=== PATIENT | male | born 1995 | race Two or more races ===

== ENCOUNTER 2022-06-14 20:50 | Outpatient (CLI) | payer BC, SELFPAY | END 2022-06-14 20:51 | disposition home or self-care (01) | LOC: SLEEP 20:56 | PROVIDERS: Visit Provider Internal Medicine | DX: G47.33 Obstructive sleep apnea (adult) (pediatric) (principal) | CPT/HCPCS: 95811 ==

== ENCOUNTER 2022-09-24 10:00 | Day surgery (SDC) | payer BC, SELFPAY ==
[2022-09-24] VITALS (19 sets, daily range): BP systolic 124–147; BP diastolic 71–95; PULSE 92–107; RESP 14–29; TEMP 35.9–36.8; O2SAT 93–100; BMI 49.5
[2022-09-24] MEDS: LACTATED RINGERS 1000 ML 1,000 ML 100 ML IV (10:10)
--- NOTE | 2022-09-24 10:47 | W.ANESCHARGE ---
Anesthesia Charges Start Date/Time Anesthesia Start Date: 09/24/22 Anesthesia Start Time: 12:02 Stop Date/Time Anesthesia Stop Date: 09/24/22 Anesthesia Stop Time: 12:52
--- NOTE | 2022-09-24 12:27 | W.ANESCHARGE ---
Anesthesia Charges Start Date/Time Anesthesia Start Date: 09/24/22 Anesthesia Start Time: 12:02 Stop Date/Time Anesthesia Stop Date: 09/24/22 Anesthesia Stop Time: 12:52
--- NOTE | 2022-09-24 12:43 | W.PM.ENTPROC ---
Procedure Note Date of procedure: 09/24/22 Procedure: Preoperative diagnosis tonsillar hypertrophy, obstructive sleep apnea Postoperative diagnosis same Procedure tonsillectomy Under general endotracheal anesthesia the patient was prepped and draped in usual fashion. The McIvor mouth gag was inserted the tongue retracted forward. No submucous cleft was noted on inspection or palpation. The right and left tonsils were removed with a combination of needlepoint cautery, bipolar cautery and suction cautery. Meticulous hemostasis was achieved. TThe patient was extubated in the operating room taken recovery in satisfactory condition. Blood loss was less than 50mL. Surgeon: Robert Manning MD
[2022-09-24] MEDS: OXYCODONE 1 MG/ML ORAL SOLN 5 MG PO ×3 (14:17→22:35)
[2022-09-24] MEDS: ACETAMINOPHEN 160 MG/5 ML CUP 320 MG PO (14:18)
[2022-09-24] MEDS: IBUPROFEN 100 MG/5 ML SUSP 200 MG PO (16:58)
[2022-09-24] MEDS: ACETAMINOPHEN 500 MG TABLET PO ×2 (18:46→22:35)
--- NOTE | 2022-09-24 19:11 | PC.NURSE ---
Nursing Care Hours: [id number] Pt this shift calm and cooperative, alert and oriented. Tachypnea and tachycardic. Denies SOB and chest pain, LS clear. c/o throat pain 4-5/10 and 8/10 at end of shift. Treated per eMAR. Independent in room. Up to void x2. Attempt to advance diet, tried past and chicken. C/o tenderness and ate very little. Tolerating soft foods like yogurt and pudding. Ice to throat intermittently. HOB elevated high fowlers, O2 at 94% RA.
[2022-09-25] MEDS: OXYCODONE 1 MG/ML ORAL SOLN 5 MG PO ×2 (02:55→07:32)
[2022-09-25] MEDS: ACETAMINOPHEN 500 MG TABLET PO ×2 (02:55→07:33)
[2022-09-25 03:00] VITALS: BP 133/77; PULSE 97; RESP 20; TEMP 36.6; O2SAT 95
--- NOTE | 2022-09-25 05:05 | PC.NURSE ---
[id number] Pt rating pain 6-7/ entire shift, PRN pain medication administered with some relief, ice applied to neck and encouraged pt to intake ice chips/sips. Pt denies sob or difficulty breathing, slept high fowlers with pt own cpap. independent in room. somewhat tolerating intake, increased pain with swallowing.
[2022-09-25 07:32] VITALS: BP 150/98; PULSE 94; RESP 18; TEMP 36.4; O2SAT 97
== END 2022-09-25 08:51 | disposition home or self-care (01) ==
LOC: OR 10:01 → MEDSURG 10:05
PROVIDERS: PCP Family Medicine; Visit Provider Otolaryngology
PROC: (CPT 42826; principal; 2022-09-24 11:15)
DX: J35.1 Hypertrophy of tonsils (principal); G47.33 Obstructive sleep apnea (adult) (pediatric)
CPT/HCPCS: 42826; 00170; 88304; A9270; J0330; J1100; J1170; J2405; J2704; J3010; J7120